=== PATIENT | female | born 1975 | race Caucasian/White ===

== ENCOUNTER 2016-08-09 23:04 | Emergency (ER) | payer MEDICAID ==
[~2016-08-09] VITALS: Ht 162.6 cm; Wt 90.3 kg
[2016-08-09] MEDS ORDERED: AMITRIPTYLINE10 MG PO (23:24)
[2016-08-09] MEDS ORDERED: PANTOPRAZOLE SO20 MG PO (23:25)
[2016-08-09 23:39] LABS: HEMOGLOBIN 15.6 g/dL (12.2-16.2); LYMPH # 1.7 K/mm3 (0.7-4.5); LYMPH % 18.9 % (10-50.0)
--- NOTE | 2016-08-09 23:57 | Emergency Room Report ---
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 N Clinical Suspician of Infection? N Mental Status: 1 - Regular (Normal Baseline) Sepsis Risk:Low Sepsis Risk Have you (or family members/close friends) recently traveled outside the [place]? N If Yes, where/when: Have you had exposure to infectious disease within the past month? N TB? Other? Specify: Source patient, RN notes reviewed, family, old records Exam Limitations no limitations Comment acute onset of rt flank and abd pain Cardiac Chest Pain Chest pain indicative of cardiac No Timing/Duration this evening Severity moderate ALLERGIES Coded Allergies: No Known Allergies (08/09/16) Home Medications Reported Medications AMITRIPTYLINE HCL (Amitriptyline) 10 MG PO QHS Pantoprazole Sodium (Pantoprazole 20MG) 20 MG PO BID History Medical History General CAD? No Angina: No [place]: No Hypertension? No Hyperlipidemia? No CHF? No DVT? No PE? No COPD? No Asthma? No Anemia? No GERD? No Gastric ulcers? No GI Bleed? No Hernia? No Thyroid Problems? No Hypothyroidism? No CVA? No Seizures? No Diabetes? No Renal Insuffiency? No End Stage Renal Disease? No UTI? No Stones? No BPH? No GB Disease: No Nephritic Syndrome? No Asplenia? No Hepatitis? No Sickle Cell Disease? No Arthritis? No Migraines? No Cataracts? No Glaucoma? No MRSA? No HIV? No TB? No Anxiety? No Depression? No Cancer? No More? 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 Respiratory denies cough, denies shortness of breath Cardiovascular denies chest pain, denies palpitations, denies syncope Gastrointestinal see HPI, abdominal pain, denies diarrhea, denies vomiting Genitourinary denies: dysuria, hesitancy, hematuria. Musculoskeletal denies joint pain, denies joint swelling Skin denies rash Psychiatric/Neurological denies seizure Physical Exam Vital Signs Vital Signs Date Time Temp Pulse Resp B/P Pulse O2 O2 Flow FiO2 Ox Delivery Rate 08/10 0104 16 08/10 0025 84 16 132/74 99 08/09 2322 98.6 92 16 135/88 98 - WBC >12,000 or <4,000 or 10% bands? 2 or more SIRS Criteria Met? B/P:132/74 MAP:103 Creatinine >2.0? UA output<0.5ml/kg/hr for 2 hrs? Platelet count >100,000? Lactate >2.0mmol/1? INR >1.2 or PTT > than 60 sec? Evidence of Organ Dysfunction? Provider documented clinical suspician of infection? N Sepsis Criteria Count: 1 Sepsis Risk: Low Sepsis Risk General Appearance no apparent distress Eye Exam - bilateral eye PERRL, bilateral eye EOMI Ear, Nose, Throat normal ENT inspection Neck supple Respiratory Status No: respiratory distress. 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 No Results/Orders Laboratory Tests 08/10/16 0000: Urine Color DK YELLOW, Urine Appearance SL CLOUDY, Urine pH 5.5, Ur Specific [place] 1.025, Urine Protein 1+ H, Urine Ketones NEGATIVE, Urine Blood 3+ H, Urine Nitrate NEGATIVE, Urine Bilirubin NEGATIVE, Urine Urobilinogen 0.2, Ur Leukocyte Esterase 1+ H, Urine RBC TNTC, Urine WBC 3-5, Ur Squamous Epith Cells 3-5, Urine Bacteria 1+, Urine Mucus 1+, Urine Glucose NEGATIVE 08/09/16 2332: Sodium 138, Potassium 3.8, Chloride 102, Carbon Dioxide 28, BUN 8, Creatinine 0.9, Estimated Creat Clear 118, Estimated GFR (MDRD) 69, Glucose 104, Calcium 8.7, Total Bilirubin 0.2, AST 35, ALT 69, Alkaline Phosphatase 63, Total Protein 7.8, Albumin 3.5, Globulin 4.3 H, Albumin/Globulin Ratio 0.8 L, Amylase 40, Lipase 144, WBC 9.2, RBC 4.89, Hgb 15.6, Hct 46.6, MCV 95.3, RDW 13.1, Plt Count 281, MPV 6.1 L, Gran % 71.2, Gran # 6.6, Lymphocytes % 18.9, Monocytes % 5.4, Eosinophils % 3.8, Basophils % 0.6, Lymphocytes # 1.7, Monocytes # 0.5, Eosinophils # 0.4, Basophils # 0.1, PUBS MCHC 33.4, MCH 31.8 H Current Medication Orders Sig/Samanta Start time Last Medication Dose Route Stop Time Status Admin Ketorolac 30 MG ONCE ONE 08/10 0115 DC 08/10 Tromethamine IV 08/10 0116 0104 Ketorolac 0 .STK-MED ONE 08/10 0100 DC Tromethamine .ROUTE Sodium Chloride 1,000 ML .STK-MED ONE 08/09 2343 DC IV Sodium Chloride 10 ML PRN PRN 08/09 2330 AC IV 08/10 2326 Sodium Chloride 1,000 ML .Q1H1M 08/09 2330 DC 08/09 IV 08/10 0030 2345 Sodium Chloride 10 ML PRN PRN 08/09 2330 AC IV 08/10 2326 Orders Procedure Date/time Status DIET-NOTHING BY MOUTH 08/[address] ABD & PELVIS W/O CONTRAST 08/[address] ABD/PELVIS REQ 08/10 0000 Complete IV SALINE LOCK 08/09 232 Active URINALYSIS/COMPLETE 08/09 232 Complete URINE 08/09 232 Complete LIPASE 08/09 2325 Complete CBC WITH AUTO DIFF 08/09 2325 Complete CHEM 12 PROFILE 08/09 2325 Complete AMYLASE 08/09 2325 Complete XRAY/CT/US XRAY/CT/US CT abdomen, pelvis CT interpretation by reviewed by me Time results known: 012 CT Results abnormal (kidney stone) Departure Departure Time of Disposition 012 Disposition DC Home or Self Care(routine) Clinical Impression Primary Impression: Renal colic on right side Condition STABLE Referrals [facility] FAIRCHILD,Rashaad Gabriel MD,Jesús Patient Instructions DI for Kidney Stones Additional Instructions fluids and see pcp or dr gabriel for follow up Discharge Counseling Counseled pt/family regarding diagnosis, R/B of controlled subst., medications/RX, follow up needs Prescriptions Current Visit Scripts HYDROCODONE/ACETAMINOPHEN (Amma 5-325 Tablet) 1 TAB PO Q6HP PRN pain #10 TAB ED Critical Care Critical Care No at 0130
--- NOTE | 2016-08-09 23:57 | Emergency Room Report ---
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 N Clinical Suspician of Infection? N Mental Status: 1 - Regular (Normal Baseline) Sepsis Risk:Low Sepsis Risk Have you (or family members/close friends) recently traveled outside the [place]? N If Yes, where/when: Have you had exposure to infectious disease within the past month? N TB? Other? Specify: Source patient, RN notes reviewed, family, old records Exam Limitations no limitations Comment acute onset of rt flank and abd pain Cardiac Chest Pain Chest pain indicative of cardiac No Timing/Duration this evening Severity moderate ALLERGIES Coded Allergies: No Known Allergies (08/09/16) Home Medications Reported Medications AMITRIPTYLINE HCL (Amitriptyline) 10 MG PO QHS Pantoprazole Sodium (Pantoprazole 20MG) 20 MG PO BID History Medical History General CAD? No Angina: No [place]: No Hypertension? No Hyperlipidemia? No CHF? No DVT? No PE? No COPD? No Asthma? No Anemia? No GERD? No Gastric ulcers? No GI Bleed? No Hernia? No Thyroid Problems? No Hypothyroidism? No CVA? No Seizures? No Diabetes? No Renal Insuffiency? No End Stage Renal Disease? No UTI? No Stones? No BPH? No GB Disease: No Nephritic Syndrome? No Asplenia? No Hepatitis? No Sickle Cell Disease? No Arthritis? No Migraines? No Cataracts? No Glaucoma? No MRSA? No HIV? No TB? No Anxiety? No Depression? No Cancer? No More? 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 Respiratory denies cough, denies shortness of breath Cardiovascular denies chest pain, denies palpitations, denies syncope Gastrointestinal see HPI, abdominal pain, denies diarrhea, denies vomiting Genitourinary denies: dysuria, hesitancy, hematuria. Musculoskeletal denies joint pain, denies joint swelling Skin denies rash Psychiatric/Neurological denies seizure Physical Exam Vital Signs Vital Signs Date Time Temp Pulse Resp B/P Pulse O2 O2 Flow FiO2 Ox Delivery Rate 08/10 0104 16 08/10 0025 84 16 132/74 99 08/09 2322 98.6 92 16 135/88 98 - WBC >12,000 or <4,000 or 10% bands? 2 or more SIRS Criteria Met? B/P:132/74 MAP:103 Creatinine >2.0? UA output<0.5ml/kg/hr for 2 hrs? Platelet count >100,000? Lactate >2.0mmol/1? INR >1.2 or PTT > than 60 sec? Evidence of Organ Dysfunction? Provider documented clinical suspician of infection? N Sepsis Criteria Count: 1 Sepsis Risk: Low Sepsis Risk General Appearance no apparent distress Eye Exam - bilateral eye PERRL, bilateral eye EOMI Ear, Nose, Throat normal ENT inspection Neck supple Respiratory Status No: respiratory distress. 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 No Results/Orders Laboratory Tests 08/10/16 0000: Urine Color DK YELLOW, Urine Appearance SL CLOUDY, Urine pH 5.5, Ur Specific [place] 1.025, Urine Protein 1+ H, Urine Ketones NEGATIVE, Urine Blood 3+ H, Urine Nitrate NEGATIVE, Urine Bilirubin NEGATIVE, Urine Urobilinogen 0.2, Ur Leukocyte Esterase 1+ H, Urine RBC TNTC, Urine WBC 3-5, Ur Squamous Epith Cells 3-5, Urine Bacteria 1+, Urine Mucus 1+, Urine Glucose NEGATIVE 08/09/16 2332: Sodium 138, Potassium 3.8, Chloride 102, Carbon Dioxide 28, BUN 8, Creatinine 0.9, Estimated Creat Clear 118, Estimated GFR (MDRD) 69, Glucose 104, Calcium 8.7, Total Bilirubin 0.2, AST 35, ALT 69, Alkaline Phosphatase 63, Total Protein 7.8, Albumin 3.5, Globulin 4.3 H, Albumin/Globulin Ratio 0.8 L, Amylase 40, Lipase 144, WBC 9.2, RBC 4.89, Hgb 15.6, Hct 46.6, MCV 95.3, RDW 13.1, Plt Count 281, MPV 6.1 L, Gran % 71.2, Gran # 6.6, Lymphocytes % 18.9, Monocytes % 5.4, Eosinophils % 3.8, Basophils % 0.6, Lymphocytes # 1.7, Monocytes # 0.5, Eosinophils # 0.4, Basophils # 0.1, PUBS MCHC 33.4, MCH 31.8 H Current Medication Orders Sig/Samanta Start time Last Medication Dose Route Stop Time Status Admin Ketorolac 30 MG ONCE ONE 08/10 0115 DC 08/10 Tromethamine IV 08/10 0116 0104 Ketorolac 0 .STK-MED ONE 08/10 0100 DC Tromethamine .ROUTE Sodium Chloride 1,000 ML .STK-MED ONE 08/09 2343 DC IV Sodium Chloride 10 ML PRN PRN 08/09 2330 AC IV 08/10 2326 Sodium Chloride 1,000 ML .Q1H1M 08/09 2330 DC 08/09 IV 08/10 0030 2345 Sodium Chloride 10 ML PRN PRN 08/09 2330 AC IV 08/10 2326 Orders Procedure Date/time Status DIET-NOTHING BY MOUTH 08/[address] ABD & PELVIS W/O CONTRAST 08/[address] ABD/PELVIS REQ 08/10 0000 Complete IV SALINE LOCK 08/09 232 Active URINALYSIS/COMPLETE 08/09 232 Complete URINE 08/09 232 Complete LIPASE 08/09 2325 Complete CBC WITH AUTO DIFF 08/09 2325 Complete CHEM 12 PROFILE 08/09 2325 Complete AMYLASE 08/09 2325 Complete XRAY/CT/US XRAY/CT/US CT abdomen, pelvis CT interpretation by reviewed by me Time results known: 012 CT Results abnormal (kidney stone) Departure Departure Time of Disposition 012 Disposition DC Home or Self Care(routine) Clinical Impression Primary Impression: Renal colic on right side Condition STABLE Referrals [facility] FAIRCHILD,Rashaad Gabriel MD,Jesús Patient Instructions DI for Kidney Stones Additional Instructions fluids and see pcp or dr gabriel for follow up Discharge Counseling Counseled pt/family regarding diagnosis, R/B of controlled subst., medications/RX, follow up needs Prescriptions Current Visit Scripts HYDROCODONE/ACETAMINOPHEN ([place] 5-325 Tablet) 1 TAB PO Q6HP PRN pain #10 TAB ED Critical Care Critical Care No at 0130
[2016-08-10 00:23] LABS: URINE BLOOD 3+ (NEG)
[2016-08-10 00:25] LABS: URINE BILIRUBIN - DIPSTICK NEGATIVE (NEG)
[2016-08-10] MEDS ORDERED: NORCO 325 MG-51 TAB PO (01:30)
[2016-08-10 01:37] VITALS: BP 132/74
--- NOTE | 2016-08-10 05:24 | RADIOLOGY REPORT PS360 ---
CT ABD PELVIS W/O CONTRAST CLINICAL INDICATION: Right lower quadrant pain ABD PAIN WITH VOMITING ORDERING PHYSICIAN: David Luu MD PATIENT AGE: 40 years COMPARISON: None TECHNIQUE: Axial images obtained with sagittal and coronal reformats. PROCEDURE: Oral Contrast: None IV Contrast: None . FINDINGS: Lower thorax: No acute finding ABDOMEN: Liver: No masses or biliary dilatation. Gallbladder: Nondistended. No radio opaque stones. Pancreas: No masses or peripancreatic fluid collections. Spleen: Unremarkable. Adrenals: Unremarkable Kidneys/ureters: There is moderate right hydronephrosis with stranding of the perinephric renal fat secondary to a 7 mm stone in the right ureteropelvic junction. There is left nephrolithiasis. Stomach bowel: Nondistended. No obvious mass or thickening. Appendix: No evidence of appendicitis. PELVIS: Reproductive: Unremarkable Bladder: Nondistended. No obvious stones or masses. ABDOMEN & PELVIS: Peritoneum: No abnormal fluid collections. No obvious inflammatory changes. No free air. Lymph nodes: No enlarged lymph nodes apparent. Vasculature: No evidence of abdominal aortic aneurysm. No retroperitoneal hemorrhage evident. Bones: No acute fracture IMPRESSION: 1. 7 mm right ureteropelvic junction stone causing mild hydronephrosis. There are stranding of the right perinephric renal fat. Associated polynephritis is a consideration. 2. Left nephrolithiasis.
== END 2016-08-10 01:38 | disposition home or self-care (01) ==
LOC: ER 23:04
PROVIDERS: Emergency Medicine
DX: N20.0 Calculus of kidney (principal); Z72.0 Tobacco use

== ENCOUNTER 2017-01-21 19:42 | Emergency (ER) | payer MEDICAID ==
[~2017-01-21] VITALS: Ht 162.6 cm; Wt 90.7 kg
[~2017-01-21 19:42] MED LIST: AMITRIPTYLINE10 MG PO; NORCO 325 MG-51 TAB PO; PANTOPRAZOLE SO20 MG PO
[2017-01-21] MEDS ORDERED: DICLOFENAC SODI75 M2 PO (19:58)
[2017-01-21] MEDS ORDERED: HYDROXYZINE HCL25 M1 PO (19:59)
[2017-01-21] MEDS ORDERED: QUETIAPINE FUM200 M1 PO (20:03)
--- OUTSIDE RECORDS SUMMARY | 2017-01-21 20:06 | External Medical Summary Rpt ---
Author Author , ASHLEY RAMIREZ Address Unknown Phone [email or web address] Providers Care Tile Decorator Name Role Phone WHITE, WHITE Unavailable Unavailable [facility] Unavailable Unavailable TRANSPORTATION [facility], [facility] Unavailable Unavailable [facility], [facility] DEBO, DEBO Unavailable Unavailable [facility] Un[facility], [facility] SCIFRES, SCIFRES Unavailable Unavailable [facility], [facility] Unavailable Unavailable [facility] Unavailable Unavailable [facility], [facility] Purpose Continuity of Care Document - 07-17-2015 through 2016 Problems Code Diagnosis DOS Provider Status [id number] CONSTIPATIO 09-15-2016 [facility] UNSPECIFIED [facility] IN [id number] PAIN IN 09-15-2016 [facility] IN [id number] PAIN IN 09-15-2016 [facility] R69 ILLNESS 09-15-2016 [facility] UNSPECIFIED TRANSPORTAT ION SER M545 LOW BACK 08-11-2016 [facility] N132 HYDRONEPHRO 08-10-2016 [facility]TRL [facility] CALCULOUS OBST R1031 RIGHT LOWER 08-10-2016 [facility] N200 CALCULUS OF 08-09-2016 [facility] Z720 TOBACCO USE 08-09-2016 [facility] R197 DIARRHEA 07-18-2016 [facility]PEC[facility] [id number] REGULAR 07-15-2016 [facility] ASTIGMATISM BILATERAL Medications Na ND Rx Da Fi Fi Am Da Di Ph RX Ph St me C No te ll ll ou ys ag ar # ys at rm s nt no ma ic us Or Da si cy ia de te s n re d HY 00 05 06 [address] 60 -3 -3 .0 00 ME ti OC 33 1- 0- 00 02 TO ve OD 89 20 20 01 WN ON 03 17 17 37 -A 2 88 PH CE AR TA MA TX CY NO PH OF EN CY 5- NT 32 HI 5 AN A RO 68 04 05 30 30 00 HO Ac PI 46 -2 -2 .0 00 ME ti NI 20 1- 6- 00 06 TO ve RO 25 20 20 08 WN LE 40 17 17 55 1 38 PH HC AR L MA 0. CY 5 MG OF TA CY BL NT ET HI AN A QU 68 04 05 30 30 00 HO Ac ET 00 -2 -2 .0 00 ME ti IA 10 - 6- 06 TO ve PI 18 20 20 08 WN NE 20 17 17 55 3 39 PH FU AR MA MA RA CY TE OF 20 0 CY MG NT HI TA AN B A NI 00 04 05 28 28 00 HO Ac CO 53 -2 -2 .0 00 ME ti TI 65 1- 6- 06 TO ve NE 89 20 20 08 WN 68 17 17 55 21 8 40 PH AR MG MA /2 CY 4H R OF PA TC CY H NT HI AN A DI 68 04 05 60 30 00 HO Ac CL 00 -2 -2 .0 00 ME ti OF 10 06 TO ve EN 28 20 20 08 WN AC 10 17 17 37 3 55 PH SO AR D MA DR CY 75 OF MG CY NT TA HI B AN A DI 68 03 04 60 30 00 HO Ac CL 00 -2 -2 .0 00 ME ti OF 10 - 8- 06 TO ve EN 28 20 20 08 WN AC 10 17 17 37 3 55 PH SO AR D JEFRY ALVES CY 75 OF MG CY NT TA HI B AN A QU 68 03 04 30 30 00 HO Ac ET 00 -2 -2 .0 00 ME ti IA 10 06 TO ve PI 18 20 20 08 WN NE 40 17 17 37 0 56 PH FU AR MA MA RA CY TE OF 10 0 CY MG NT HI TA AN B A OM 68 03 04 30 30 00 HO Ac EP 46 -2 -2 .0 00 ME ti RA 20 3- 8- 06 TO ve ZO 39 20 20 08 WN LE 71 17 [address] AR MA 40 CY MG OF CA CY PS NT UL HI E AN A QU 68 02 03 30 30 00 HO Ac ET 00 -2 -3 .0 00 ME ti IA 10 3- - 06 TO ve PI 18 20 20 08 WN NE 40 17 17 20 0 14 PH FU AR MA MA RA CY TE OF 10 0 CY MG NT HI TA AN B A DI 68 02 03 60 30 00 HO Ac CL 00 -2 -3 .0 00 ME ti OF 10 3- 1- 00 06 TO ve EN 28 20 20 08 WN AC 10 17 17 20 6 15 PH SO AR D MA DR CY 75 OF MG CY NT TA HI B AN A OM 68 02 03 30 30 00 HO Ac EP 46 -2 -3 .0 00 ME ti RA 20 3- 1- 00 06 TO ve ZO 39 20 20 08 WN LE 71 17 [address] NITA CAPPS 40 CY MG OF CA CY PS NT UL HI E AN A HY 00 02 03 [address] 60 -1 -1 .0 00 ME ti OC 33 5- 7- 00 02 TO ve OD 89 20 20 01 WN ON 03 17 17 29 -A 2 09 PH CE AR TA MA TX CY NO PH OF EN CY 5- NT 32 HI 5 AN A AM 00 01 02 30 30 00 HO Ac IT 78 -2 -2 .0 00 ME ti RI 11 3- 4- 00 06 TO ve PT 48 20 20 08 WN YL 80 17 17 00 IN 1 25 PH E AR HC MA L CY 50 OF MG CY TA NT B HI AN A OM 68 01 02 30 30 00 HO Ac EP 46 -2 -2 .0 00 ME ti RA 20 3- 4- 00 06 TO ve ZO 39 20 20 08 WN LE 71 17 [address] NITA CAPPS 40 CY MG OF CA CY PS NT UL HI E AN A Procedures Procedure DOS Code Location Performer Comment NONEMERG A0120 [facility] TRNSPRT: 7 [facility] TRANSP[facility] MTN ATION SER ATION SER AREA/OTH SYS NONEMERG A0120 [facility] TRNSPRT: 7 [facility] TRANSPORT MTN ATION SER ATION SER AREA/OTH SYS RADEX 34313 [facility] MEDICAL LUMBOSACR IMAGING AL 2/3 ASS VIEWS FINAL G9638 [facility] REPORTS 7 MEDICAL MEDICAL W/O DOC IMAGING IMAGING 1/MORE ASS ASS DOSE REDUCTION TECH URINE 43535 [facility] TEST INC [place] [address] [facility] ABDOMEN & 7 MEDICAL MEDICAL PELVIS IMAGING IMAGING W/O ASS ASS CONTRAST MATERIAL FINAL G9551 [facility] REPR ABD 7 MEDICAL MEDICAL IMAG STS IMAGING IMAGING W/O ASS ASS INCIDNT FND LES NTD: URNLS DIP 98277 [facility] STICK/TAB INC [place] [address] [facility] INFUSION [facility] THERAPY/P INC INC ROPHYLAXI S /DX 1ST TO 1 HR THERAPEUT 96803 [facility] IC [facility] INJECTION INC INC IV PUSH EACH NEW DRUG BLOOD 10662 [facility] COUNT [facility] COMPLETE INC [place] AUTO&[place] [address] [facility] LIPASE [facility] INC INC COMPREHEN 76105 [facility] SIVE [facility] [place] [address] [facility] AMYLASE [facility] INC INC NONEMERG A0120 [facility] FEDERATED TRNSPRT: 7 [facility] TRANSPORT [facility]OT SYS OPHTH 25493 [facility] MEDICAL 7 XM&EVAL COMPRHNSV ESTAB PT 1/> NONEMERG A0120 [facility] FEDERATED TRNSPRT: 6 [facility] TRANSPORT [facility]OT SYS Encounters Encounter Start End Date Code Location Performer Type Date OFFICE 79677 [facility] T VISIT SOLUTIONS 25 IN MINUTES [facility] OUTPAT[facility] T [facility] OUTPATIEN INC T EMERGENCY 83035 [facility] DEPARTMEN INC T VISIT HIGH/URGE NT SEVERITY OFFICE 10253 [facility] 7 7 HEALTH T NEW 30 SOLUTIONS MINUTES IN
--- OUTSIDE RECORDS SUMMARY | 2017-01-21 20:06 | External Medical Summary Rpt ---
Author Author , ASHLEY RAMIREZ Address Unknown Phone [email or web address] Care Team Providers Care Competency Evaluated Nurse Aide Name Role Phone WHITE, WHITE Unavailable Unavailable [facility] Unavailable Unavailable TRANSPORTATION SER, [facility] Unavailable Unavailable INC, [facility] DEBO, DEBO Unavailable Unavailable [facility] Unavailable Unavailable IM[facility]ING [facility], [facility] SCIFRES, SCIFRES Unavailable Unavailable [facility]IF[facility], SCIFRES Unavailable Unavailable [facility] Unavailable Unavailable SOLUTIONS IN, [facility] Purpose Continuity of Care Document - 07-17-2015 through 2016 Problems Code Diagnosis DOS Provider Status K5900 CONSTIPATIO 09-15-2016 [facility] UNSPECIFIED SOLUTIONS IN [id number] PAIN IN 09-15-2016 [facility] RIGHT KNEE HEALTH SOLUTIONS IN [id number] PAIN IN 09-15-2016 [facility] LEFT KNEE HEALTH SOLUTIONS IN R69 ILLNESS 09-15-2016 FEDERATED UNSPECIFIED TRANSPORTAT ION SER M545 LOW BACK 08-11-2016 [facility] N132 HYDRONEPHRO 08-10-2016 [facility] SIS W/RENAL MEDICAL & URETRL IMAGING ASS CALCULOUS OBST R1031 RIGHT LOWER 08-10-2016 [facility] PAIN IM[facility]ING ASS N200 CALCULUS OF 08-09-2016 [facility] Z720 TOBACCO USE 08-09-2016 [facility] R197 DIARRHEA 07-18-2016 [facility] UNSPECIFIED HEALTH SOLUTIONS IN [id number] REGULAR 07-15-2016 [facility] ASTIGMATISM BILATERAL Medications Na [...] 2 88 PH CE AR TA MA ME CY NO PH OF EN CY 5- [...] .0 00 ME ti OF 10 - 06 TO ve EN 28 20 20 08 WN AC 10 17 17 37 3 55 PH SO AR D JEFRY ALVES CY 75 OF MG CY NT TA HI B AN A QU 68 03 04 30 30 00 HO Ac ET 00 -2 -2 .0 00 ME ti IA 10 8- 06 TO ve PI 18 20 20 08 WN NE 40 17 17 37 0 56 PH FU AR MA MA RA CY TE OF 10 0 CY MG NT HI TA AN B A DI 68 03 04 60 30 00 HO Ac CL 00 -2 -2 .0 00 ME ti OF 10 8- 06 TO ve EN 28 20 20 08 WN AC 10 17 17 37 3 55 PH SO AR D JEFRY ALVES CY 75 OF MG CY NT TA HI B AN A OM 68 03 04 30 30 [...] 2 09 PH CE AR TA MA ME CY NO PH OF EN CY 5- [...] ATION SER ATION SER AREA/OTH SYS RADEX 40164 [facility] 7 MEDICAL LUMBOSACR IMAGING AL 2/3 ASS VIEWS FINAL G9551 [facility] REPR ABD 7 MEDICAL MEDICAL IMAG STS IMAGING IMAGING W/O ASS ASS INCIDNT FND LES NTD: URNLS DIP 60715 [facility] STICK/TAB INC INC LET REAGENT AUTO MICROSCOP Y FINAL G9638 [facility] REPORTS 7 MEDICAL MEDICAL W/O DOC IMAGING IMAGING 1/MORE ASS ASS DOSE REDUCTION TECH URINE 43745 [facility] TEST [place] [address] [facility] ABDOMEN & 7 [facility] [place]EL[place] [address] [facility] INFUSION 7 [facility] THERAPY/P INC INC ROPHYLAXI S /DX 1ST TO 1 HR THERAPEUT 16042 [facility] IC 7 [facility] INJECTION INC [place] [address] [facility] LIPASE 7 [facility] INC INC BLOOD 68724 [facility] COUNT 7 [facility] COMPLETE INC INC AUTO&AUTO DIFRNTL WBC COMPREHEN 47032 [facility] SIVE 7 [facility] [place] [address] [facility] AMYLASE 7 [facility] INC INC NONEMERG A0120 FEDERATED FEDERATED TRNSPRT: 7 [facility] TRANSPORT TRANSPORT [facility]/OT SYS OPHTH 08605 [employer] SCINEW [facility] MEDICAL 7 XM&EVAL COMPRHNSV ESTAB PT 1/> NONEMERG A0120 FEDERATED FEDERATED TRNSPRT: 6 [facility] TRANSPORT TRANSPORT [facility] SYS Encounters Encounter Start End Date Code Location Performer Type Date OFFICE 53991 [facility] 7 7 HEALTH T VISIT SOLUTIONS 25 IN MINUTES [facility]OSPITAL [facility] - [facility] OUTPATIEN INC T EMERGENCY 96383 [facility] 7 7 [facility] DEPARTMEN INC T VISIT HIGH/URGE NT SEVERITY HOSPITAL [facility] - 7 7 [facility] OUTPATIEN INC T OFFICE 47155 [facility] 7 7 HEALTH T NEW 30 SOLUTIONS MINUTES IN
--- OUTSIDE RECORDS SUMMARY | 2017-01-21 20:06 | External Medical Summary Rpt ---
Author Author ASHLEY Witt, [employer] Organization [employer] Address Unknown Phone Unavailable
--- OUTSIDE RECORDS SUMMARY | 2017-01-21 20:06 | External Medical Summary Rpt ---
Author Author , ASHLEY RAMIREZ Address Unknown Phone [email or web address] Care Team Providers Care Distribution Lead Name Role Phone WHITE, WHITE Unavailable Unavailable [facility] Unavailable Unavailable TRANSPORTATION SER, [facility] Unavailable Unavailable INC, [facility] DEBO, DEBO Unavailable Unavailable [facility] Unavailable Unavailable IMAGING ASS, [facility] SCIFRES, SCIFRES Unavailable Unavailable [facility], SCIFRES Unavailable Unavailable [facility] Unavailable Unavailable SOLUTIONS IN, [facility] Purpose Continuity of Care Document - 07-17-2015 through 2016 Problems Code Diagnosis DOS Provider Status K5900 CONSTIPATIO 09-15-2016 [facility] UNSPECIFIED SOLUTIONS IN [id number] PAIN IN 09-15-2016 [facility] RIGHT KNEE HEALTH SOLUTIONS IN [id number] PAIN IN 09-15-2016 [facility] LEFT KNEE HEALTH SOLUTIONS IN R69 ILLNESS 09-15-2016 FEDERATED UNSPECIFIED TRANSPORTAT ION SER M545 LOW BACK 08-11-2016 [place] [facility] N132 HYDRONEPHRO 08-10-2016 [place] SIS W/RENAL MEDICAL & URETRL IMAGING ASS CALCULOUS OBST R1031 RIGHT LOWER 08-10-2016 [place] [facility]ANT [facility]ICAL PAIN IMAGING ASS N200 CALCULUS OF 08-09-2016 [facility] Z720 TOBACCO USE 08-09-2016 [facility] R197 DIARRHEA 07-18-2016 [facility] UNSPECIFIED HEALTH SOLUTIONS IN T16774 REGULAR 07-15-2016 [facility] ASTIGMATISM BILATERAL Medications Na [...] 2 88 PH CE AR TA MA NV CY NO PH OF EN CY 5- [...] 2 09 PH CE AR TA MA [place] CY NO PH OF EN CY 5- [...] ATION SER ATION SER AREA/OTH SYS RADEX 69250 [place] [facility] SP[facility] 7 MEDICAL LUMBOSACR IMAGING AL 2/3 ASS VIEWS FINAL G9551 [facility] REPR ABD 7 MEDICAL MEDICAL IMAG STS IMAGING IMAGING W/O ASS ASS INCIDNT FND LES NTD: URNLS DIP 63474 [facility] STICK/TAB INC INC LET REAGENT AUTO MICROSCOP Y FINAL G9638 [facility] REPORTS 7 MEDICAL MEDICAL W/O DOC IMAGING IMAGING 1/MORE ASS ASS DOSE REDUCTION TECH URINE 09216 [facility] TEST INC [place] [address] [facility] ABDOMEN & 7 [facility] PELVIS [place] [address] [facility] INFUSION 7 [facility] THERAPY/P INC INC ROPHYLAXI S /DX 1ST TO 1 HR THERAPEUT 43495 [facility] IC 7 [facility] INJECTION INC [place] [address] [facility] LIPASE 7 [facility] INC INC BLOOD 58495 [facility] COUNT 7 [facility] COMPLETE INC INC AUTO&AUTO DIFRNTL WBC COMPREHEN 65146 [facility] SIVE 7 [facility] [place] [address] [facility] AMYLASE 7 [facility] INC INC NONEMERG A0120 FEDERATED FEDERATED TRNSPRT: 7 [facility] TRANSPORT TRANSPORT [facility]/OT SYS OPHTH [address]21 [employer] [facility] 7 XM&EVAL COMPRHNSV ESTAB PT 1/> NONEMERG A0120 FEDERATED FEDERATED TRNSPRT: 6 [facility] TRANSPORT TRANSPORT [facility] SYS Encounters Encounter Start End Date Code Location Performer Type Date OFFICE 90553 [facility] 7 7 HEALTH T VISIT SOLUTIONS 25 IN MINUTES HOSPITAL [facility] - [facility] 7 [facility] OUTPATIEN INC T EMERGENCY 72470 [facility] 7 7 [facility] DEPARTMEN INC T VISIT HIGH/URGE NT SEVERITY HOSPITAL [facility] - 7 7 [facility] OUTPATIEN INC T OFFICE 55219 [facility] 7 7 HEALTH T NEW 30 SOLUTIONS MINUTES IN
--- OUTSIDE RECORDS SUMMARY | 2017-01-21 20:06 | External Medical Summary Rpt ---
Author Author , ASHLEY RAMIREZ Address Unknown Phone [email or web address] Care Team Providers Care Glost Placer Name Role Phone WHITE, WHITE Unavailable Unavailable FEDERATED Unavailable Unavailable TRANSPORTATION SER, [facility]SP[facility] Unavailable Unavailable INC, [facility] DEBO, DEBO Unavailable Unavailable [facility] Unavailable Unavailable IMAGING ASS, [facility] SCIFRES, SCIFRES Unavailable Unavailable SCIFRES, SCIFRES Unavailable Unavailable [facility] Unavailable Unavailable SOLUTIONS IN, [facility] Purpose Continuity of Care Document - 07-17-2015 through 2016 Problems Code Diagnosis DOS Provider Status K5900 CONSTIPATIO 09-15-2016 [facility] N [facility] UNSPECIFIED SOLUTIONS IN [id number] PAIN IN 09-15-2016 [facility] RIGHT KNEE HEALTH SOLUTIONS IN P56230 PAIN IN 09-15-2016 [facility] LEFT KNEE HEALTH SOLUTIONS IN R69 ILLNESS 09-15-2016 FEDERATED UNSPECIFIED TRANSPORTAT ION SER M545 LOW BACK 08-11-2016 [place] [facility]IN [facility] ASS N132 HYDRONEPHRO 08-10-2016 [place] SIS W/RENAL MEDICAL & URETRL IMAGING ASS CALCULOUS OBST R1031 RIGHT LOWER 08-10-2016 [place] [facility] PAIN IMAGING ASS N200 CALCULUS OF 08-09-2016 [facility] Z720 TOBACCO USE 08-09-2016 [facility] INC R197 DIARRHEA 07-18-2016 [facility] UNSPECIFIED HEALTH SOLUTIONS IN P90428 REGULAR 07-15-2016 [facility] ASTIGMATISM BILATERAL Medications Na [...] 2 88 PH CE AR TA [place] CO CY NO PH OF EN CY 5- [...] 2 09 PH CE AR TA MA CO CY NO PH OF EN CY 5- [...] ATION SER ATION SER AREA/OTH SYS RADEX 95258 [place] [facility] SPINE 7 MEDICAL LUMBOSACR IMAGING AL 2/3 ASS VIEWS FINAL G9638 [facility] REPORTS 7 MEDICAL MEDICAL W/O DOC IMAGING IMAGING 1/MORE ASS ASS DOSE REDUCTION TECH URINE 27412 [facility] TEST INC [place] [address] [facility] ABDOMEN & 7 MEDICAL MEDICAL PELVIS IMAGING IMAGING W/O ASS ASS CONTRAST MATERIAL FINAL G9551 [facility] REPR ABD 7 MEDICAL MEDICAL IMAG STS IMAGING IMAGING W/O ASS ASS INCIDNT FND LES NTD: URNLS DIP 02902 [facility] STICK/TAB INC [place] [address] [facility] INFUSION 7 [facility] THERAPY/P INC INC ROPHYLAXI S /DX 1ST TO 1 HR THERAPEUT 35048 [facility] IC 7 [facility] INJECTION INC INC IV PUSH EACH NEW DRUG BLOOD 94450 [facility] COUNT 7 [facility] COMPLETE INC INC AUTO&[place] [address] [facility] LIPASE 7 [facility] INC INC COMPREHEN 90207 [facility] SIVE 7 [facility] [address] [facility] AMYLASE 7 [facility] INC INC NONEMERG A0120 FEDERATED FEDERATED TRNSPRT: 7 [facility] TRANSPORT TRANSPORT [facility]/OT SYS OPHTH [address] [facility] MEDICAL 7 XM&EVAL COMPRHNSV ESTAB PT 1/> NONEMERG A0120 FEDERATED FEDERATED TRNSPRT: 6 [facility] TRANSPORT TRANSPORT [facility]/OT SYS Encounters Encounter Start End Date Code Location Performer Type Date OFFICE 19761 [facility] 7 7 HEALTH T VISIT SOLUTIONS 25 IN MINUTES HOSPITAL [facility] - 7 7 [facility] OUTPATIEN INC T HOSPITAL [facility] - 7 7 [facility] OUTPATIEN INC T EMERGENCY 76815 [facility] 7 7 [facility] DEPARTMEN INC T VISIT HIGH/URGE NT SEVERITY OFFICE 70618 [facility] 7 7 HEALTH T NEW 30 SOLUTIONS MINUTES IN
--- OUTSIDE RECORDS SUMMARY | 2017-01-21 20:06 | External Medical Summary Rpt ---
Demographics Preferred Language Occitan Marital Status Unknown Protestant Affiliation Unknown Race Unknown Ethnic Group Unknown Author Author , ASHLEY RAMIREZ Address Unknown Phone Immunization Unable to retrieve immunization data due to connection failure with Immunization Registry. Please try again later.
--- OUTSIDE RECORDS SUMMARY | 2017-01-21 20:06 | External Medical Summary Rpt ---
Demographics Preferred Language Armenian Marital Status Unknown Restorationism Affiliation Unknown Race Unknown Ethnic Group Unknown Author Author , ASHLEY RAMIREZ Address Unknown Phone Immunization Unable to retrieve immunization data due to connection failure with Immunization Registry. Please try again later.
[2017-01-21 20:22] LABS: HEMOGLOBIN 15.3 g/dL (12.2-16.2); LYMPH # 2.5 K/mm3 (0.7-4.5); LYMPH % 15.4 % (10-50.0); URINE BILIRUBIN - DIPSTICK NEGATIVE (NEG); URINE BLOOD 1+ (NEG)
--- NOTE | 2017-01-21 20:32 | Emergency Room Report ---
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 NAUSEA, VOMITING SINCE THEN. 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 N Clinical Suspician of Infection? Y Mental Status: 1 - Regular (Normal Baseline) Sepsis Risk:Low Sepsis Risk Have you (or family members/close friends) recently traveled outside the [place]? N If Yes, where/when: Have you had exposure to infectious disease within the past month? N TB? Other? Specify: Comment The patient complains of RIGHT flank and lower abdominal pain. She says she was seen here sometime around June and was diagnosed with a kidney stone, "I have stones in both kidneys". She says that she was referred to a doctor at [facility], but the doctor does not take her insurance. She has therefore not followed up with the urologist. She says she did see her primary care provider, but hasn't had no further treatment or diagnostics. She has had pain ever since then in the locations noted above, but today at about 10:30 or 11 it got worse and she has also had vomiting. Hot and cold chills all day today, temp not taken. ALLERGIES Coded Allergies: No Known Drug Allergies (NKDA) (01/21/17) Home Medications Active Scripts HYDROCODONE/ACETAMINOPHEN ([place] 5-325 Tablet) 1 TAB PO Q6HP PRN pain #10 TAB Prov: 08/10/16 Reported Medications AMITRIPTYLINE HCL (Amitriptyline) 10 MG PO QHS Pantoprazole Sodium (Pantoprazole 20MG) 20 MG PO BID Diclofenac Sodium 75 MG PO DAILY #60 HYDROXYZINE HCL (Hydroxyzine HCl) 25 MG PO BID #60 Quetiapine Fumarate 200 MG PO Q PM #30 History Medical History General CAD? No Angina: No NV: No Hypertension? No Hyperlipidemia? No CHF? No DVT? No PE? No COPD? No Asthma? No Anemia? No GERD? No Gastric ulcers? No GI Bleed? No Hernia? No Thyroid Problems? No Hypothyroidism? No CVA? No Seizures? No Diabetes? No Renal Insuffiency? No End Stage Renal Disease? No UTI? No Stones? No BPH? No GB Disease: No Nephritic Syndrome? No Asplenia? No Hepatitis? No Sickle Cell Disease? No Arthritis? No Migraines? No Cataracts? No Glaucoma? No MRSA? No HIV? No TB? No Anxiety? No Depression? No Cancer? No More? 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 Stranding of the RIGHT perinephric renal fat. LEFT nephrolithiasis. Review of her emergency department chart shows that she was referred to urologists Dr. Hauser and Dr. Gabriel. The patient states she does not recall this referral and has not attempted to contact them. Review of Systems All Other Systems Reviewed and Negative Constitutional denies fever Gastrointestinal abdominal pain, nausea, vomiting Physical Exam Vital Signs Vital Signs Date Time Temp Pulse Resp B/P Pulse O2 O2 Flow FiO2 Ox Delivery Rate 01/216 74 16 104/59 98 01/21 2106 12 01/22 2028 78 14 141/89 97 01/21 2017 14 01/21 1944 98.0 81 12 146/96 99 General Appearance mild distress, high BMI Eye Exam - bilateral eye normal exam, bilateral eye PERRL, bilateral eye EOMI Ear, Nose, Throat hearing grossly normal, normal ENT inspection Neck normal inspection, non-tender, supple, full range of motion Respiratory Status Yes: trachea midline, chest symmetrical, non tender chest. No: respiratory distress. Lung Sounds bilateral: normal breath sounds, lungs clear. Cardiovascular normal exam, regular rate/rhythm, no peripheral edema, no gallop, no JVD, no murmur, no rub, normal peripheral pulses Peripheral Pulses Pulses normal Yes Gastrointestinal normal bowel sounds, soft, no organomegaly, no guarding, no rebound, tenderness (Lower and RIGHT abdomen) Back normal inspection, no vertebral tenderness, CVA tenderness (R) Extremities non-tender, normal range of motion, normal inspection Neurologic alert, team psychologist II-XII nml as tested, normal exam, oriented x 3 Mental status normal mood/affect Skin intact, normal color, warm/dry Medical Decision Making LABS/Meds/Orders Pt receiving controlled substance in ED? Yes Ricardo was queried for this patient? Yes Comment [id number] 2 rxs. last rx 15 norco on 11/23/16. Results/Orders Laboratory Tests 01/21/172109: Sodium 141, Potassium 3.8, Chloride 107, Carbon Dioxide 24, BUN 17, Creatinine 1.3 H, Estimated Creat Clear 82, Estimated GFR (MDRD) 45 L, Glucose 94, Calcium 8.3 L, Total Bilirubin 0.5, AST 36, ALT 60, Alkaline Phosphatase 65, Total Protein 7.0, Albumin 3.3 L, Globulin 3.7 H, Albumin/Globulin Ratio 0.9 L, Amylase 63, Lipase 203 01/21/171999: WBC 16.4 H, RBC 4.75, Hgb 15.3, Hct 45.6, MCV 95.9, RDW 13.1, Plt Count 267, MPV 8.3, Gran % 75.4, Gran # 12.4 H, Total Counted 100, Lymphocytes % 15.4, Monocytes % 6.5, Eosinophils % 2.2, Basophils % 0.5, Neutrophils 82 H, Band Neutrophils 2, Lymphocytes (Manual) 16, Lymphocytes # 2.5, Monocytes # 1.1 H, Eosinophils # 0.4, Basophils # 0.1, Differential Comment FEW SMUDGE CELLS NOTED, RBC/WBC/PLT Morphology NORMAL, Toxic Granulation 1+, Platelet Estimate NORMAL, PUBS MCHC 33.4, MCH 32.1 H, Urine Color YELLOW, Urine Appearance CLEAR, Urine pH 6.0, Ur Specific [place] >= 1.030, Urine Protein NEGATIVE, Urine Ketones 1+ H, Urine Blood 1+ H, Urine Nitrate NEGATIVE, Urine Bilirubin NEGATIVE, Urine Urobilinogen 0.2, Ur Leukocyte Esterase NEGATIVE, Urine RBC 5-10, Urine WBC 3-5, Ur Squamous Epith Cells 10-20, Urine Glucose NEGATIVE Current Medication Orders Sig/Samanta Start time Last Medication Dose Route Stop Time Status Admin Ceftriaxone Sodium 0 .STK-MED ONE 01/21 2151 DC .ROUTE Sodium Chloride 50 ML .STK-MED ONE 01/21 2150 DC IV Ceftriaxone Sodium 1 GM ONCE ONE 01/21 2145 AC 01/21 Sodium Chloride 50 ML IV 07/29 2214 2152 Hydromorphone HCl 0 .STK-MED ONE 01/21 2049 DC .ROUTE Hydromorphone HCl 1 MG ONCE ONE 01/21 2045 DC 01/21 IV 01/21 Ketorolac 0 .STK-MED ONE 01/21 2013 DC Tromethamine .ROUTE Ondansetron HCl 0 .STK-MED ONE 01/21 2013 DC .ROUTE Sodium Chloride 1,000 ML .STK-MED ONE 01/21 2013 DC IV Ketorolac 30 MG ONCE ONE 01/22 2000 DC 01/21 Tromethamine IV 01/21 Ondansetron HCl 4 MG ONCE ONE 01/22 2000 DC 01/21 IV 01/21 Sodium Chloride 1,000 ML .Q1H1M 01/22 2000 DC 01/21 IV 01/21 Sodium Chloride 10 ML PRN PRN 01/22 2000 AC IV 01/22 1955 Orders Procedure Date/time Status DIET-NOTHING BY MOUTH 01/22 B Active CULTURE, URINE 01/21 2122 Active CULTURE, BLOOD 01/21 2122 Active LACTIC ACID 01/21 2122 Active URINE 01/[address] ABD & PELVIS W/O CONTRAST 01/21 2007 Active DIFFERENTIAL-WBC 01/22 2000 Complete Urine Test, Perform/ 01/21 1953 Active URINALYSIS/COMPLETE 01/[address] ABD/PELVIS REQ 01/22 1952 Active LIPASE 01/22 1952 Complete CBC WITH AUTO DIFF 01/22 1952 Complete CHEM 12 PROFILE 01/22 1952 Complete AMYLASE 01/22 1952 Complete XRAY/CT/US XRAY/CT/US CT abdomen, pelvis Comment 7 mm stone in LEFT urinary collecting system and has just moved slightly from the UPJ into the proximal ureter. More prominent stranding of surrounding fascia. Suspicious for pyelonephritis. RIGHT ovarian cyst, not present on scan in July. Progress - 10:00 PM: The patient's stone has not moved significantly since July. She has evidence on CT scan of probable pyelonephritis, with an elevated white blood cell count and toxic granulation. I feel she needs transfer for urologic treatment, probable stent placement and lithotripsy. Antibiotics have been started. I discussed the case with Dr. Watts in the emergency department at [facility] and he accepts the patient in transfer. Departure Departure Disposition DC/XFER from ER to [facility] Clinical Impression Primary Impression: Right ureteral calculus Secondary Impressions: Left nephrolithiasis, Pyelonephritis, Right ovarian cyst Condition STABLE Referrals LAMAR EDMONDSON APRN (Family) ED Critical Care Critical Care No
[2017-01-21 20:50] LABS: NEUTROPHILS 82 % (42-76)
--- NOTE | 2017-01-21 22:05 | RADIOLOGY REPORT PS360 ---
CT ABD PELVIS W/O CONTRAST COMPARISON: CT scan abdomen pelvis 08/10/2016 HISTORY: Flank pain, history of kidney stones TECHNIQUE: Multiple axial scans obtained from the hemidiaphragms the pelvic floor and were performed without IV or oral contrast. Sagittal coronal reformats were evaluated as well. FINDINGS: The lower lung arias are clear. Cardiac size is normal. Liver spleen stomach pancreas and gallbladder appear grossly normal. The adrenal glands are normal. The kidneys are normal size. There is prominent stranding of Gerota's fascia around the right kidney. There is a 7.2 calculus at the UPJ having moved inferiorly into the proximal ureter slightly when compared to the previous study in July. There is no significant hydronephrosis. However the prominent stranding of Gerota's fascia certainly suggests pyelonephritis developing in the right kidney. There is a stable small nonobstructing calculus lower pole left kidney. Small bowel appears normal. Do not definitely identify the appendix but there are no pericecal inflammatory changes. There is minimal scattered stool throughout the colon. There is a hypodense cystic-appearing lesion right adnexa measuring 4.0 x 3.9 x 3.2 cm likely a right ovarian cyst. Uterus is normal and in the midline. Urinary bladder is decompressed with is no free fluid in the pelvis. IMPRESSION: Prominent inflammatory changes surrounding the right kidney with 7 mm calculus sitting at the UPJ likely causing intermittent obstruction of the right kidney and a developing infection as described above. Suggest consideration of urological evaluation for possible lithotripsy procedure for the right UPJ calculus
[2017-01-21 23:44] VITALS: BP 106/76
== END 2017-01-21 23:44 | disposition short-term general hospital (02) ==
LOC: ER 19:42
PROVIDERS: Emergency Medicine
DX: N21.1 Calculus in urethra (principal); N20.0 Calculus of kidney; Z87.442 Personal history of urinary calculi; N12 Tubulo-interstitial nephritis, not specified as acute or chronic; N83.201 Unspecified ovarian cyst, right side
CPT/HCPCS: J2405